=== PATIENT | female | born 1970 | race Caucasian/White ===

== ENCOUNTER → 2016-05-17 | Outpatient (CLI) | payer OTHER, BC ==
[2016-05-17 15:07] LABS: BASOPHILS # (AUTO) 0.02 10*3/UL; BASOPHILS % (AUTO) 0.4 % (0-1); EOSINOPHILS % (AUTO) 1.8 % (0-8); HEMATOCRIT 43.2 % (37.0-47.0); HEMOGLOBIN 14.6 g/dL (12.0-16.0); IMM GRAN % (AUTO) 0.4 % (0-5); IMM GRAN# (AUTO) 0.02 10*3/UL; LYMPHOCYTES # (AUTO) 1.67 10*3/uL; LYMPHOCYTES % (AUTO) 29.3 % (10-50); MEAN CORPUSCULAR HGB CONC 33.8 g/dL (33-37); MEAN PLATELET VOLUME 10.4 FL (7.4-12.2); NEUTROPHILS # (AUTO) 3.49 10*3/UL; NEUTROPHILS % (AUTO) 61.1 % (50-80); RDW COEFFICIENT OF VARIATION 13.6 % (11.5-14.5); RED BLOOD COUNT 4.56 10^6/uL (4.20-5.40)
[2016-05-17 15:08] LABS: PLATELET MORPHOLOGY COMMENT NORMAL MORPHOLOGY (NORM)
== END ==
LOC: LAB 09:43
PROVIDERS: ATTEND Physician Assistant Medical
DX: F25.1 Schizoaffective disorder, depressive type (principal); Z79.899 Other long term (current) drug therapy; F17.210 Nicotine dependence, cigarettes, uncomplicated
CPT/HCPCS: 36415; 85025

== ENCOUNTER → 2016-06-22 | Outpatient (CLI) | payer OTHER, BC ==
[2016-06-22 14:47] LABS: BASOPHILS # (AUTO) 0.03 10*3/UL; BASOPHILS % (AUTO) 0.5 % (0-1); EOSINOPHILS % (AUTO) 1.4 % (0-8); HEMATOCRIT 41.1 % (37.0-47.0); IMM GRAN % (AUTO) 0 % (0-5); IMM GRAN# (AUTO) 0 10*3/UL; LYMPHOCYTES # (AUTO) 1.72 10*3/uL; LYMPHOCYTES % (AUTO) 30.8 % (10-50); MEAN CORPUSCULAR HEMOGLOBIN 32.2 PG (27-31); MEAN CORPUSCULAR HGB CONC 34.1 g/dL (33-37); MEAN PLATELET VOLUME 10.3 FL (7.4-12.2); MONOCYTES # (AUTO) 0.26 10*3/UL (0.3-0.8); MONOCYTES % (AUTO) 4.7 % (5-15); NEUTROPHILS % (AUTO) 62.6 % (50-80); RDW COEFFICIENT OF VARIATION 13.6 % (11.5-14.5); RED BLOOD COUNT 4.35 10^6/uL (4.20-5.40); WHITE BLOOD COUNT 5.59 10^3/uL (4.8-10.8)
[2016-06-22 15:00] LABS: PLATELET MORPHOLOGY COMMENT NORMAL MORPHOLOGY (NORM)
== END ==
LOC: LAB 09:59
PROVIDERS: ATTEND Physician Assistant Medical
DX: F20.0 Paranoid schizophrenia (principal); F17.210 Nicotine dependence, cigarettes, uncomplicated
CPT/HCPCS: 85025

== ENCOUNTER → 2016-07-26 | Outpatient (CLI) | payer OTHER, BC ==
[2016-07-26 14:34] LABS: BASOPHILS # (AUTO) 0.02 10*3/UL; BASOPHILS % (AUTO) 0.3 % (0-1); EOSINOPHILS # (AUTO) 0.05 10*3/UL; EOSINOPHILS % (AUTO) 0.8 % (0-8); HEMATOCRIT 41.7 % (37.0-47.0); HEMOGLOBIN 14.1 g/dL (12.0-16.0); LYMPHOCYTES # (AUTO) 1.69 10*3/uL; MEAN CORPUSCULAR HGB CONC 33.8 g/dL (33-37); MEAN CORPUSCULAR VOLUME 94.6 FL (81-99); MEAN PLATELET VOLUME 10.1 FL (7.4-12.2); MONOCYTES # (AUTO) 0.33 10*3/UL (0.3-0.8); MONOCYTES % (AUTO) 5.4 % (5-15); NEUTROPHILS # (AUTO) 4.01 10*3/UL; NEUTROPHILS % (AUTO) 65.6 % (50-80); RED BLOOD COUNT 4.41 10^6/uL (4.20-5.40)
[2016-07-26 14:45] LABS: PLATELET MORPHOLOGY COMMENT NORMAL MORPHOLOGY (NORM); RBC MORPHOLOGY COMMENT NORMAL MORPHOLOGY (NORM); WBC MORPHOLOGY COMMENT NORMAL MORPHOLOGY (NORM)
== END ==
LOC: LAB 11:15
PROVIDERS: ATTEND Physician Assistant Medical
DX: F25.1 Schizoaffective disorder, depressive type (principal); Z79.899 Other long term (current) drug therapy; F17.210 Nicotine dependence, cigarettes, uncomplicated
CPT/HCPCS: 85025

== ENCOUNTER → 2016-08-08 | Outpatient (CLI) | payer OTHER, BC ==
[2016-08-08 14:38] LABS: BASOPHILS # (AUTO) 0.02 10*3/UL; BASOPHILS % (AUTO) 0.2 % (0-1); EOSINOPHILS # (AUTO) 0.06 10*3/UL; EOSINOPHILS % (AUTO) 0.5 % (0-8); HEMATOCRIT 44.3 % (37.0-47.0); HEMOGLOBIN 14.9 g/dL (12.0-16.0); LYMPHOCYTES # (AUTO) 1.52 10*3/uL; MEAN CORPUSCULAR HGB CONC 33.6 g/dL (33-37); MEAN CORPUSCULAR VOLUME 95.1 FL (81-99); MEAN PLATELET VOLUME 10.3 FL (7.4-12.2); MONOCYTES # (AUTO) 0.53 10*3/UL (0.3-0.8); MONOCYTES % (AUTO) 4.7 % (5-15); NEUTROPHILS # (AUTO) 9.13 10*3/UL; NEUTROPHILS % (AUTO) 80.9 % (50-80); RED BLOOD COUNT 4.66 10^6/uL (4.20-5.40)
[2016-08-08 14:41] LABS: PLATELET MORPHOLOGY COMMENT NORMAL MORPHOLOGY (NORM); RBC MORPHOLOGY COMMENT NORMAL MORPHOLOGY (NORM); WBC MORPHOLOGY COMMENT NORMAL MORPHOLOGY (NORM)
[2016-08-08 14:52] LABS: BLOOD UREA NITROGEN 11 mg/dL (7-22); BUN/CREATININE RATIO 12.22 (6-20); CALCIUM 9.3 mg/dL (8.7-10.7); EST GLOMERULAR FILTRATION > 60 (>60 ml/min/1.73m(2)); SERUM ALBUMIN 4.3 g/dL (3.5-4.8)
== END ==
LOC: LAB 10:05
PROVIDERS: ATTEND Physician Assistant Medical
DX: F20.0 Paranoid schizophrenia (principal); F17.210 Nicotine dependence, cigarettes, uncomplicated
CPT/HCPCS: 80053; 85025

== ENCOUNTER → 2016-08-10 | Outpatient (CLI) | payer OTHER, BC ==
[2016-08-10 15:42] LABS: BASOPHILS # (AUTO) 0.01 10*3/UL; BASOPHILS % (AUTO) 0.2 % (0-1); EOSINOPHILS # (AUTO) 0.05 10*3/UL; EOSINOPHILS % (AUTO) 0.9 % (0-8); HEMATOCRIT 44.4 % (37.0-47.0); HEMOGLOBIN 14.9 g/dL (12.0-16.0); LYMPHOCYTES # (AUTO) 1.32 10*3/uL; MEAN CORPUSCULAR HEMOGLOBIN 31.9 PG (27-31); MEAN CORPUSCULAR HGB CONC 33.6 g/dL (33-37); MEAN CORPUSCULAR VOLUME 95.1 FL (81-99); MEAN PLATELET VOLUME 10.1 FL (7.4-12.2); MONOCYTES # (AUTO) 0.35 10*3/UL (0.3-0.8); MONOCYTES % (AUTO) 6.4 % (5-15); NEUTROPHILS # (AUTO) 3.75 10*3/UL; NEUTROPHILS % (AUTO) 68.4 % (50-80); RED BLOOD COUNT 4.67 10^6/uL (4.20-5.40)
[2016-08-10 15:56] LABS: PLATELET MORPHOLOGY COMMENT NORMAL MORPHOLOGY (NORM); RBC MORPHOLOGY COMMENT NORMAL MORPHOLOGY (NORM); WBC MORPHOLOGY COMMENT NORMAL MORPHOLOGY (NORM)
== END ==
LOC: LAB 08:21
PROVIDERS: ATTEND Physician Assistant Medical
DX: D72.829 Elevated white blood cell count, unspecified (principal)
CPT/HCPCS: 85025

== ENCOUNTER → 2016-08-28 | Outpatient (CLI) | payer OTHER, BC ==
[2016-08-28 14:55] LABS: BASOPHILS # (AUTO) 0.02 10*3/UL; BASOPHILS % (AUTO) 0.4 % (0-1); EOSINOPHILS # (AUTO) 0.04 10*3/UL; EOSINOPHILS % (AUTO) 0.8 % (0-8); HEMATOCRIT 44.7 % (37.0-47.0); LYMPHOCYTES # (AUTO) 1.52 10*3/uL; MEAN CORPUSCULAR HGB CONC 33.6 g/dL (33-37); MEAN CORPUSCULAR VOLUME 95.3 FL (81-99); MEAN PLATELET VOLUME 10.3 FL (7.4-12.2); MONOCYTES % (AUTO) 8.1 % (5-15); NEUTROPHILS # (AUTO) 2.97 10*3/UL; RED BLOOD COUNT 4.69 10^6/uL (4.20-5.40)
[2016-08-28 14:59] LABS: PLATELET MORPHOLOGY COMMENT NORMAL MORPHOLOGY (NORM); RBC MORPHOLOGY COMMENT NORMAL MORPHOLOGY (NORM); WBC MORPHOLOGY COMMENT NORMAL MORPHOLOGY (NORM)
== END ==
LOC: LAB 09:16
PROVIDERS: ATTEND Physician Assistant Medical
DX: F20.0 Paranoid schizophrenia (principal)
CPT/HCPCS: 85025

== ENCOUNTER → 2016-09-22 | Outpatient (CLI) | payer OTHER, BC ==
[2016-09-22 14:35] LABS: BASOPHILS # (AUTO) 0.03 10*3/UL; BASOPHILS % (AUTO) 0.5 % (0-1); EOSINOPHILS # (AUTO) 0.05 10*3/UL; EOSINOPHILS % (AUTO) 0.8 % (0-8); HEMOGLOBIN 15.4 g/dL (12.0-16.0); LYMPHOCYTES # (AUTO) 1.86 10*3/uL; MEAN CORPUSCULAR HEMOGLOBIN 32.4 PG (27-31); MEAN CORPUSCULAR HGB CONC 34.2 g/dL (33-37); MEAN CORPUSCULAR VOLUME 94.5 FL (81-99); MONOCYTES # (AUTO) 0.41 10*3/UL (0.3-0.8); MONOCYTES % (AUTO) 6.6 % (5-15); NEUTROPHILS # (AUTO) 3.85 10*3/UL; NEUTROPHILS % (AUTO) 61.9 % (50-80); RED BLOOD COUNT 4.76 10^6/uL (4.20-5.40)
[2016-09-22 14:42] LABS: PLATELET MORPHOLOGY COMMENT NORMAL MORPHOLOGY (NORM); RBC MORPHOLOGY COMMENT NORMAL MORPHOLOGY (NORM); WBC MORPHOLOGY COMMENT NORMAL MORPHOLOGY (NORM)
== END ==
LOC: LAB 10:16
PROVIDERS: ATTEND Physician Assistant Medical
DX: F25.1 Schizoaffective disorder, depressive type (principal); Z79.899 Other long term (current) drug therapy
CPT/HCPCS: 85025

== ENCOUNTER → 2016-10-27 | Outpatient (CLI) | payer OTHER, BC ==
[2016-10-27 15:33] LABS: BASOPHILS # (AUTO) 0.03 10*3/UL; BASOPHILS % (AUTO) 0.6 % (0-1); EOSINOPHILS # (AUTO) 0.11 10*3/UL; EOSINOPHILS % (AUTO) 2.1 % (0-8); HEMOGLOBIN 13.7 g/dL (12.0-16.0); LYMPHOCYTES # (AUTO) 1.67 10*3/uL; MEAN CORPUSCULAR HEMOGLOBIN 31.9 PG (27-31); MEAN CORPUSCULAR HGB CONC 33.4 g/dL (33-37); MEAN CORPUSCULAR VOLUME 95.6 FL (81-99); MEAN PLATELET VOLUME 10.6 FL (7.4-12.2); MONOCYTES % (AUTO) 7.5 % (5-15); NEUTROPHILS # (AUTO) 3.15 10*3/UL; NEUTROPHILS % (AUTO) 58.6 % (50-80); RED BLOOD COUNT 4.29 10^6/uL (4.20-5.40)
[2016-10-27 15:37] LABS: PLATELET MORPHOLOGY COMMENT NORMAL MORPHOLOGY (NORM); RBC MORPHOLOGY COMMENT NORMAL MORPHOLOGY (NORM); WBC MORPHOLOGY COMMENT NORMAL MORPHOLOGY (NORM)
== END ==
LOC: LAB 09:26
PROVIDERS: ATTEND Physician Assistant Medical
DX: F25.0 Schizoaffective disorder, bipolar type (principal); F17.200 Nicotine dependence, unspecified, uncomplicated
CPT/HCPCS: 85025

== ENCOUNTER → 2016-11-23 | Outpatient (CLI) | payer OTHER, BC ==
[2016-11-23 15:27] LABS: HEMATOCRIT 43.8 % (37.0-47.0); HEMOGLOBIN 14.7 g/dL (12.0-16.0); MEAN CORPUSCULAR HGB CONC 33.6 g/dL (33-37); MEAN CORPUSCULAR VOLUME 95.2 FL (81-99)
[2016-11-23 15:28] LABS: BASOPHILS # (AUTO) 0.02 10*3/UL; BASOPHILS % (AUTO) 0.4 % (0-1); EOSINOPHILS # (AUTO) 0.08 10*3/UL; EOSINOPHILS % (AUTO) 1.5 % (0-8); LYMPHOCYTES # (AUTO) 1.93 10*3/uL; MEAN PLATELET VOLUME 10.3 FL (7.4-12.2); MONOCYTES # (AUTO) 0.37 10*3/UL (0.3-0.8); MONOCYTES % (AUTO) 6.8 % (5-15); NEUTROPHILS # (AUTO) 3.01 10*3/UL; NEUTROPHILS % (AUTO) 55.6 % (50-80); PLATELET MORPHOLOGY COMMENT NORMAL MORPHOLOGY (NORM); RBC MORPHOLOGY COMMENT NORMAL MORPHOLOGY (NORM); WBC MORPHOLOGY COMMENT NORMAL MORPHOLOGY (NORM)
== END ==
LOC: LAB 09:23
PROVIDERS: ATTEND Physician Assistant Medical
DX: F20.0 Paranoid schizophrenia (principal); F17.200 Nicotine dependence, unspecified, uncomplicated
CPT/HCPCS: 85025

== ENCOUNTER → 2016-12-13 | Outpatient (CLI) | payer OTHER, BC ==
[2016-12-13 14:39] LABS: BASOPHILS # (AUTO) 0.04 10*3/UL; BASOPHILS % (AUTO) 0.6 % (0-1); EOSINOPHILS # (AUTO) 0.08 10*3/UL; EOSINOPHILS % (AUTO) 1.1 % (0-8); HEMATOCRIT 42.5 % (37.0-47.0); HEMOGLOBIN 14.6 g/dL (12.0-16.0); LYMPHOCYTES # (AUTO) 1.35 10*3/uL; MEAN CORPUSCULAR HEMOGLOBIN 32.6 PG (27-31); MEAN CORPUSCULAR HGB CONC 34.4 g/dL (33-37); MEAN CORPUSCULAR VOLUME 94.9 FL (81-99); MEAN PLATELET VOLUME 10.3 FL (7.4-12.2); MONOCYTES # (AUTO) 0.46 10*3/UL (0.3-0.8); MONOCYTES % (AUTO) 6.5 % (5-15); NEUTROPHILS # (AUTO) 5.09 10*3/UL; NEUTROPHILS % (AUTO) 72.5 % (50-80); RED BLOOD COUNT 4.48 10^6/uL (4.20-5.40)
[2016-12-13 14:40] LABS: PLATELET MORPHOLOGY COMMENT NORMAL MORPHOLOGY (NORM); RBC MORPHOLOGY COMMENT NORMAL MORPHOLOGY (NORM); WBC MORPHOLOGY COMMENT NORMAL MORPHOLOGY (NORM)
[2016-12-13 14:47] LABS: BLOOD UREA NITROGEN 11 mg/dL (7-22); BUN/CREATININE RATIO 12.22 (6-20); CALCIUM 9.3 mg/dL (8.7-10.7); EST GLOMERULAR FILTRATION > 60 (>60 ml/min/1.73m(2))
== END ==
LOC: LAB 09:15
DX: Z01.812 Encounter for preprocedural laboratory examination (principal); F25.0 Schizoaffective disorder, bipolar type; J40 Bronchitis, not specified as acute or chronic
CPT/HCPCS: 80048; 85025